=== PATIENT | male | born 1950 | race Caucasian/White ===

== ENCOUNTER → 2021-10-21 09:24 | Outpatient (CLI) | payer MEDICARE, OTHER, SELFPAY ==
[2021-10-21 10:10] VITALS: PULSE 68; PULSE 70
== END ==
PROVIDERS: PCP Family Medicine; Visit Provider Internal Medicine Pulmonary Disease
DX: R06.00 Dyspnea, unspecified (principal)
CPT/HCPCS: 94060; 94618; 94640; 94727; 94729